=== PATIENT | female | born 1985 | race Caucasian/White ===

== ENCOUNTER 2017-07-14 12:19 | Emergency (ER) | payer OTHER ==
[2017-07-14 12:29] VITALS: BMI 35.3
[2017-07-14] MEDS ORDERED: ONDANSETRON 4 MG/2 ML VIAL IVPB ONE (14:16)
[2017-07-14] MEDS ORDERED: SODIUM CHLORIDE 1,000 ML IV STA (14:16)
--- NOTE | 2017-07-14 14:21 | PDOC ---
History of Present Illness - General Chief Complaint: Pain, Acute Stated Complaint: ABD CRAMPS (7 WKS ) Time Seen by Provider: 07/14/17 13:46 - History of Present Illness Initial Comments: 07/14/17 14:11 31 yo who presents at [address] [facility] [place] complaint of left lower abdominal pain. Non bloody, biliary emesis x 6 yesterday and x 3 today. Crampy, stable, unremitting predominant LLQ abdominal pain slightly improved with left lateral decubitus position beginning this AM. Denies OTC treatment. Denies vaginal bleeding, or pelvic pain. Endorses decreased appetite and mild intermittent headache since course of . No postprandial pain. Denies fevers/chills, constipation, diarrhea, chest pain, SOB, lightheadedness, vision changes, LOC, dysuria, urinary complaints, hematuria. Currently sexually active with one sexual partner. Denies h/o STI. Denies tobacoo, alcohol intake. LMP . C section x 2, 1 vaginal . No PCP. OBGYN Dr. Vale Thursday Past History - Past Medical History Allergies/Adverse Reactions: Allergies Allergy/AdvReac Type Severity Reaction Status Date / Time No Known Allergies Allergy Verified 07/14/17 12:24 Home Medications: Ambulatory Orders Vits #93/Iron Fum/FA [ Formula Tablet] 1 each PO DAILY Asthma: No Cancer: No Cardiac Disorders: No COPD: No Diabetes: No HTN: No Seizures: No Thyroid Disease: No - Reproductive History (#): 3 Para: 2 - Suicide/Smoking/Psychosocial Hx Smoking Status: No Smoking History: Never smoked Have you smoked in the past 12 months: No Number of Cigarettes Smoked Daily: 0 Information on smoking cessation initiated: No Hx Alcohol Use: No Drug/Substance Use Hx: No Substance Use Type: None Hx Substance Use Treatment: No Review of Systems - Review of Systems Comments:: 07/14/17 14:21 GENERAL/CONSTITUTIONAL: No fever or chills. No weakness. HEAD, EYES, EARS, NOSE AND THROAT: No change in vision. No ear pain or discharge. No sore throat.- CARDIOVASCULAR: No chest pain or shortness of breath RESPIRATORY: No cough, wheezing, or hemoptysis. GASTROINTESTINAL: + Abdominal pain, nausea, vomiting. No diarrhea or constipation. GENITOURINARY: No dysuria, frequency, or change in urination. MUSCULOSKELETAL: No joint or muscle swelling or pain. No neck or back pain. SKIN: No rash NEUROLOGIC: No headache, vertigo, loss of consciousness, or change in strength/ sensation. ENDOCRINE: No increased thirst. No abnormal weight change HEMATOLOGIC/LYMPHATIC: No anemia, easy bleeding, or history of blood clots. ALLERGIC/IMMUNOLOGIC: No hives or skin allergy. *Physical Exam - Vital Signs Last Vital Signs Temp Pulse Resp BP Pulse Ox 99.1 F 96 H 18 125/69 100 07/14/17 12:25 07/14/17 12:25 07/14/17 12:25 07/14/17 12:25 07/14/17 12:25 - Physical Exam Comments: 07/14/17 14:22 GENERAL: Awake, alert, and fully oriented, in no acute distress HEAD: No signs of trauma, normocephalic, atraumatic EYES: PERRLA, EOMI, sclera anicteric, conjunctiva clear ENT: Hearing grossly normal, nares patent, oropharynx clear without exudates. Moist mucosa NECK: Normal ROM, no JVD, or masses LUNGS: No distress, speaks full sentences, clear to auscultation bilaterally HEART: Regular rate and LLQ ttp, normoactive bowel sounds. No guarding, no rigidity, no rebound. No masses. No CVA ttp. Neg Meza sign. Neg Mcburney point ttp. EXTREMITIES : Normal inspection, Normal range of motion, no edema. No clubbing or cyanosis. SKIN: Warm, Dry, normal turgor, no rashes or lesions noted. ED Treatment Course - LABORATORY CBC & Chemistry Diagram: 07/14/17 14:23 07/14/17 14:23 Medical Decision Making - Medical Decision Making 07/14/17 14:23 31 yo who presents at [address] [facility] with complaint of crampy LLQ abdominal pain asx with non bloody, biliary emesis x 6 yesterday and x 3 today. Pain slightly improved with left lateral decubitus position beginning this AM. Denies vaginal bleeding, pelvic pain, fevers/chills, constipation, diarrhea, dysuria, urinary complaints, hematuria. Currently sexually active with one sexual partner. Denies h/o STI. Denies tobacoo, alcohol intake. LMP . C section x 2, 1 vaginal . No PCP. OBGYN Dr. Vale Thursday. Physical exam reveals LLQ ttp. Patient hemodynamically stable. Will obtain transvaginal u /s to r/o ectopic ectopic . Patient denies vaginal bleeding, low supsicion of first trimester . Low suspicion of ovarian torsion. Also will consider cystitis., gastritis, or hyperemesis gravidarum. ED Course: CBC, CMP, Lipase, UA, EKG NS, Zofran Transvaginal U/S 07/14/17 15:00 WBC: 11.4 07/14/17 15:01 UA: Neg 07/14/17 15:56 HCG [id number] 07/14/17 15:56 CMP: Unremarkable 07/14/17 16:03 Transvaginal U/S:single live intrauterine gestational at 7w1d. No ovarian pathology noted. heart activity documented. Patient is stable and ready for discharge with strict return precautions. Advised to f/u with OBGYN this week. *DC/Admit/Observation/Transfer Diagnosis at time of Disposition: Abdominal pain affecting - Discharge Dispostion Disposition: HOME Condition at time of disposition: Stable Admit: No - Referrals - Patient Instructions Printed Discharge Instructions: DI for Abdominal Pain -- Early Additional Instructions: Please return to the emergency department with any new or worsening symptoms or concerns. Please follow up with your BUSINESS INTELLIGENCE MANAGER physician within 1 week. - Post Discharge Activity - Attestations Physician Attestion: 07/14/17 16:02 I attest to the information provided in this note.
[2017-07-14 14:44] LABS: BASOPHIL 0.4 % (0-2.0); EOSINOPHIL 0.4 % (0-4.5); MCH 28.5 pg (25.7-33.7); MEAN CELL VOLUME 86.4 fl (80-96); MEAN PLT VOLUME 7.5 fl (7.5-11.1); NEUTROPHILS 76.8 % (42.8-82.8); PLATELET COUNT 257 K/MM3 (134-434); RDW 14.7 % (11.6-15.6); WHITE BLOOD COUNT 11.4 K/mm3 (4.0-10.0)
[2017-07-14 14:45] LABS: PH,URINE 6.5 (5.0-8.0); URINE APPEARANCE CLEAR; URINE BILIRUBIN NEGATIVE (NEGATIVE); URINE BLOOD NEGATIVE (NEGATIVE); URINE COLOR LT. YELLOW; URINE GLUCOSE (UA) NEGATIVE (NEGATIVE); URINE KETONE NEGATIVE (NEGATIVE); URINE NITRITE NEGATIVE (NEGATIVE); URINE PROTEIN NEGATIVE (NEGATIVE); URINE UROBILINOGEN 0.2 mg/dL (0.2-1.0)
[2017-07-14 15:09] LABS: ALBUMIN 3.8 g/dl (3.4-5.0); ANION GAP 7 (8-16); CALCIUM 9.1 mg/dL (8.5-10.1); CO2 26 mmol/L (21-32); CREATININE 0.7 mg/dL (0.55-1.02); GLUCOSE,RANDOM 75 mg/dL (74-106); SGOT/AST 12 U/L (15-37); SGPT/ALT 22 U/L (12-78)
[2017-07-14 15:11] LABS: ALK PHOS 83 U/L (45-117); BILIRUBIN,TOTAL 0.3 mg/dL (0.2-1.0)
--- NOTE | 2017-07-14 16:16 | PDOC ---
Attending Attestation - Resident Resident Name: Johnny Lombardo - ED Attending Attestation I have performed the following: I have examined & evaluated the patient, The case was reviewed & discussed with the resident, I agree w/resident's findings & plan, Exceptions are as noted - HPI HPI: 07/14/17 16:11 31-year-old female LMP about 7 weeks' presents with mild and intermittent left lateral abdominal cramping since this morning, gassy type pain in the setting of several days of constipation. No urinary complaints, no vaginal bleeding or pelvic cramping. Scheduled to see Dr. Whittaker on 07/30. - Physicial Exam PE: 07/14/17 16:12 afebrile, vss abd soft/nt/nd bs nl. no cvat. no guarding/rebound - Medical Decision Making 07/14/17 16:14 Patient seen and evaluated with the resident. I agree with the overall evaluation, assessment, and management with the following summary of visit: Healthy 31-year-old female first trimester with nonspecific gas E left lateral abdominal discomfort without associated REHAB OFFICE COORDINATOR or complaints, only in the setting of constipation. Abdomen is benign, no other red flags on history or physical exam. Labs are within normal limits Urinalysis is clear Ultrasound shows normal IUP, ovarian flow not evaluated but patient's pain is much lateral to the ovary/pelvic region and presentation is not consistent with torsion. Can proceed with f/u with Dr. Whittaker on 07/30 as scheduled. understands return criteria.
[2017-07-14 16:18] VITALS: BP 100/64; PULSE 78; TEMP 98.6
[2017-07-14 20:03] LABS: URINE LEUK ESTERASE Negative (NEGATIVE)
== END 2017-07-14 16:18 | disposition home or self-care (01) ==
LOC: JER 12:19
PROC: 3E033GC Introduction of Other Therapeutic Substance into Peripheral Vein, Percutaneous Approach (ICD-10-PCS; principal; 2017-07-14)
DX: O26.891 Other specified pregnancy related conditions, first trimester (principal); R10.30 Lower abdominal pain, unspecified; Z3A.01 Less than 8 weeks gestation of pregnancy
CPT/HCPCS: 36415; 76817-TC; 80053; 81003; 83690; 84702; 85025; 86850; 86900; 86901; 96374; 99284-25

== ENCOUNTER 2017-08-03 14:25 | Emergency (ER) | payer OTHER ==
[2017-08-03 14:29] VITALS: BP 132/83; PULSE 105; TEMP 98.3; BMI 36.3
[2017-08-03] MEDS ORDERED: ONDANSETRON 4 MG/2 ML VIAL IVPB ONE (14:31)
[2017-08-03] MEDS ORDERED: SODIUM CHLORIDE 0.9% 1000 ML INFUS.BAG IV ONE (14:32)
--- NOTE | 2017-08-03 14:34 | PDOC ---
Rapid Medical Evaluation Time Seen by Provider: 08/03/17 14:26 Medical Evaluation: Allergies Allergy/AdvReac Type Severity Reaction Status Date / Time No Known Allergies Allergy Verified 07/14/17 12:24 08/03/17 14:27 I have performed a brief in-person evaluation of this patient. This patient presents with a chief complaint of: vomiting since yesterday. Patient 10 weeks ,GP Denies vaginal bleeding and crampin Pertinenet physical exam findings: NAD lungs clear bilaterally abdomen soft non tender +bowel sounds Gu: no cva tenderness I have ordered the following: iv access, ivf and antiemetic This patient will proceed to the ED for further evaluation Discharge Disposition - Referrals Referrals: Gilberto Whittaker MD [Primary Care Provider] - - Patient Instructions - Post Discharge Activity
[2017-08-03] MEDS ORDERED: ONDANSETRON 4 MG/2 ML VIAL ONE (16:15)
[2017-08-03] MEDS ORDERED: ACETAMINOPHEN 325 MG TABLET (FP) PO ONE (16:39)
[2017-08-03] MEDS ORDERED: ACETAMINOPHEN 325 MG TABLET (FP) ONE (17:15)
--- NOTE | 2017-08-03 17:26 | PDOC ---
History of Present Illness - General Chief Complaint: Nausea/Vomiting Stated Complaint: NAUSEA/VOMITING 10 WKS PREG Time Seen by Provider: 08/03/17 14:26 Past History - Past Medical History Allergies/Adverse Reactions: Allergies Allergy/AdvReac Type Severity Reaction Status Date / Time No Known Allergies Allergy Verified 08/03/17 14:29 Home Medications: Ambulatory Orders Vits #93/Iron Fum/FA [ Formula Tablet] 1 each PO DAILY Asthma: No Cancer: No Cardiac Disorders: No COPD: No Diabetes: No HTN: No Seizures: No Thyroid Disease: No Other medical history: denies - Reproductive History (#): 3 Para: 2 - Suicide/Smoking/Psychosocial Hx Smoking Status: No Smoking History: Never smoked Have you smoked in the past 12 months: No Number of Cigarettes Smoked Daily: 0 Information on smoking cessation initiated: No Hx Alcohol Use: No Drug/Substance Use Hx: No Substance Use Type: None Hx Substance Use Treatment: No *Physical Exam - Vital Signs Last Vital Signs Temp Pulse Resp BP Pulse Ox 98.3 F 105 H 18 132/83 100 08/03/17 14:27 08/03/17 14:27 08/03/17 14:27 08/03/17 14:27 08/03/17 14:27 ED Treatment Course - Medications Given in the ED: ED Medications Discontinued Medications Generic Name Dose Route Start Last Admin Trade Name Nick PRN Reason Stop Dose Admin Acetaminophen 650 mg 08/03/17 16:39 08/03/17 17:17 Tylenol - PO 08/03/17 16:40 650 mg ONCE ONE Administration Ondansetron HCl 4 mg 08/03/17 14:31 08/03/17 16:20 Zofran Injection IVPB 08/03/17 14:32 4 mg ONCE ONE Administration Sodium Chloride 1,000 ml 08/03/17 14:32 08/03/17 16:20 Normal Saline - IV 08/03/17 14:33 1,000 ml ONCE ONE Administration *DC/Admit/Observation/Transfer - Referrals Referrals: Gilberto Whittaker MD [Primary Care Provider] - - Patient Instructions - Post Discharge Activity
--- NOTE | 2017-08-03 17:29 | PDOC ---
Attending Attestation - Resident Resident Name: AlfonzocynthiaArtem - ED Attending Attestation I have performed the following: I have examined & evaluated the patient, The case was reviewed & discussed with the resident, I agree w/resident's findings & plan, Exceptions are as noted - HPI HPI: 08/03/17 17:27 31 yo female who is approximately 10 weeks p/w persistent vomiting - Physicial Exam PE: 08/03/17 17:29 wnwnd 31 yo female . this is her 4th . children 11,7,4 at home head ncat neck supple lungs cta b/l cvs [id number] abd nontender,no rebound ext no e/c/c neuro no focall neuro deficits - Medical Decision Making 08/03/17 21:06 pt had no pelvic cramping or bleeding/feels much better [id number] IVF pllan d/c, obg/fence erector supervisor follow up, RX zofran
--- NOTE | 2017-08-03 18:19 | PDOC ---
History of Present Illness - General Chief Complaint: Nausea/Vomiting Stated Complaint: NAUSEA/VOMITING 10 WKS PREG Time Seen by Provider: 08/03/17 14:26 History Source: Patient Exam Limitations: No Limitations - History of Present Illness Initial Comments: 08/03/17 18:12 Pt is a 31 y/o F 10 weeks w/ PMH hyperemesis gravidarum during her first who presents to ED with nausea and nonbloddy nonbilious vomiting for 1 day. Pt is afebrile, in NAD, and hemodynamically stable. Pt denies fever, chills, recent travel, abd pain, diarrhea. Pt has been taking Zofran daily since June. Past History - Past Medical History Allergies/Adverse Reactions: Allergies Allergy/AdvReac Type Severity Reaction Status Date / Time No Known Allergies Allergy Verified 08/03/17 14:29 Home Medications: Ambulatory Orders Vits #93/Iron Fum/FA [ Formula Tablet] 1 each PO DAILY Ondansetron HCl [Zofran] 8 mg PO BID PRN #20 tablet 08/03/17 Asthma: No Cancer: No Cardiac Disorders: No COPD: No Diabetes: No HTN: No Seizures: No Thyroid Disease: No Other medical history: denies - Reproductive History (#): 3 Para: 2 - Suicide/Smoking/Psychosocial Hx Smoking Status: No Smoking History: Never smoked Have you smoked in the past 12 months: No Number of Cigarettes Smoked Daily: 0 Information on smoking cessation initiated: No Hx Alcohol Use: No Drug/Substance Use Hx: No Substance Use Type: None Hx Substance Use Treatment: No Review of Systems - Review of Systems Able to Perform ROS?: Yes Is the patient limited [place]ian proficient: No Constitutional: Yes: Symptoms Reported, See HPI, Loss of Appetite. No: Chills, Diaphoresis, Fever, Malaise, Weakness HEENTM: Yes: Symptoms Reported, See HPI. No: Recent change in vision Respiratory: Yes: Symptoms reported, See HPI. No: Cough, Shortness of Breath Cardiac (ROS): Yes: Symptoms Reported, See HPI. No: Chest Pain, Lightheadedness , Palpitations, Syncope ABD/GI: Yes: Symptoms Reported, See HPI, Nausea, Vomiting. No: Abdominal Distended, Abd. Pain w/ defecation, Constipated, Diarrhea : Yes: Symptoms Reported, See HPI. No: Burning, Dysuria, Discharge, Frequency Musculoskeletal: Yes: Symptoms Reported, See HPI. No: Back Pain *Physical Exam - Vital Signs Last Vital Signs Temp Pulse Resp BP Pulse Ox 98.3 F 105 H 18 132/83 100 08/03/17 14:27 08/03/17 14:27 08/03/17 14:27 08/03/17 14:27 08/03/17 14:27 ED Treatment Course - LABORATORY CBC & Chemistry Diagram: 08/03/17 19:22 - Medications Given in the ED: ED Medications Discontinued Medications Generic Name Dose Route Start Last Admin Trade Name Freq PRN Reason Stop Dose Admin Acetaminophen 650 mg 08/03/17 16:39 08/03/17 17:17 Tylenol - PO 08/03/17 16:40 650 mg ONCE ONE Administration Ondansetron HCl 4 mg 08/03/17 14:31 08/03/17 16:20 Zofran Injection IVPB 08/03/17 14:32 4 mg ONCE ONE Administration Sodium Chloride 1,000 ml 08/03/17 14:32 08/03/17 16:20 Normal Saline - IV 08/03/17 14:33 1,000 ml ONCE ONE Administration Medical Decision Making - Medical Decision Making 08/03/17 18:20 Pt is a 31F 10th week of s/p C/S x 2 w/ PMH hyperemesis gravidarum who presented to ED with nausea and nonbloody vomiting (10 episodes) for 1 d. She has been taking Zofran daily since Jun for similar complaint. Pt is afebrile, hemodynamically stable, in NAD. Denies recent travel, sick contacts. -Tylenol -Zofran -NS *DC/Admit/Observation/Transfer Diagnosis at time of Disposition: Hyperemesis gravidarum - Discharge Dispostion Disposition: HOME Condition at time of disposition: Good Admit: No - Prescriptions Prescriptions: Ondansetron HCl [Zofran] 8 mg PO BID PRN #20 tablet PRN Reason: Nausea - Referrals Referrals: Gilberto Whittaker MD [Primary Care Provider] - - Patient Instructions Additional Instructions: Please follow up with your CONCESSION MANAGER within 3 days. Please take all of your prescription medications as directed. If your symptoms get worse or if you develop new symptoms, please return to the emergency department. Try to stay hydrated with small amounts of fluid frequently. - Post Discharge Activity
[2017-08-03] MEDS ORDERED: SODIUM CHLORIDE 1,000 ML IV STA (18:41)
[2017-08-03] MEDS ORDERED: METOCLOPRAMIDE HCL INJECTION 10 MG/2 ML VIAL IVPB STA (18:41)
[2017-08-03] MEDS ORDERED: METOCLOPRAMIDE HCL INJECTION 10 MG/2 ML VIAL ONE (19:07)
[2017-08-03 19:59] LABS: ANION GAP 6 (8-16); CO2 25 mmol/L (21-32); CREATININE 0.5 mg/dL (0.55-1.02); GLUCOSE,RANDOM 76 mg/dL (74-106); SGOT/AST 13 U/L (15-37); SGPT/ALT 18 U/L (12-78)
[2017-08-03 20:01] LABS: ALK PHOS 59 U/L (45-117); BILIRUBIN,TOTAL 0.6 mg/dL (0.2-1.0); TOT PROT 6.6 g/dl (6.4-8.2)
== END 2017-08-03 21:33 | disposition home or self-care (01) ==
LOC: JER 14:25
DX: O26.891 Other specified pregnancy related conditions, first trimester (principal); O21.0 Mild hyperemesis gravidarum; Z3A.10 10 weeks gestation of pregnancy
CPT/HCPCS: 36415; 80053; 99284-25

== ENCOUNTER 2017-09-07 12:27 | Emergency (ER) | payer OTHER ==
[2017-09-07 12:37] VITALS: BP 119/64; TEMP 99.2; BMI 36.3
--- NOTE | 2017-09-07 15:07 | PDOC ---
History of Present Illness - General Chief Complaint: Cold Symptoms Stated Complaint: CHEST PAIN, COUGH (15 WKS ) Time Seen by Provider: 09/07/17 15:04 History Source: Patient Exam Limitations: No Limitations - History of Present Illness Initial Comments: CHIEF COMPLAINT: 31 y/o 15 week female c/o worsening dry cough x 1 week. HISTORY OF PRESENT ILLNESS: The patient states the front of her chest is now sore to touch because of all of the coughing. She denies fever. She denies NAIDU , SOB, runny nose, nasal congestion, n/v/d, abnormal vaginal discharge, leg or calf pain/redness. Vital signs on arrival are notable for pulse of 110 secondary to temp of 99.2. REVIEW OF SYSTEMS: GENERAL/CONSTITUTIONAL: No fever/chills. No weakness. No weight change. HEAD, EYES, EARS, NOSE AND THROAT: No change in vision. No ear pain or discharge. No sore throat. CARDIOVASCULAR: +chest pain. No shortness of breath. RESPIRATORY: +dry cough. No wheezing or hemoptysis. GASTROINTESTINAL: No abd pain, nausea, vomiting, diarrhea. GENITOURINARY: No dysuria, frequency, or change in urination. MUSCULOSKELETAL: No joint or muscle swelling or pain. No neck or back pain. No redness or swelling to legs. SKIN: No rash or easy bruising. NEUROLOGIC: No headache, vertigo, loss of consciousness, or loss of sensation. PHYSICAL EXAM: GENERAL: The patient is awake, alert, and fully oriented, in no acute distress. She is well appearing and ambulatory. Very sporadic dry cough. HEAD: Normal with no signs of trauma. ENT: Pupils equal, round and reactive to light, extraocular movements intact, sclera anicteric, conjunctiva clear. Neck supple. LUNGS: Clear to auscultation bilaterally. Normal excursion. No respiratory distress or use of accessory muscles. CV: RRR, S1/S2, no MRG. Cap refill < 2 sec. CHEST WALL: Reproducible pain with palpation of anterior chest wall along b/l sternal borders. ABDOMEN: Soft, non-distended, non-tender even to deep palpation, no hepatomegaly or splenomegaly, no masses. EXTREMITIES: Normal range of motion, no edema. No erythema or tenderness to calves b/l. NEUROLOGICAL: Normal speech, normal gait. CN II-XII grossly intact. PSYCH: Normal mood, normal affect. SKIN: Warm, dry, normal turgor, no rashes or lesions noted. Past History - Past Medical History Allergies/Adverse Reactions: Allergies Allergy/AdvReac Type Severity Reaction Status Date / Time No Known Allergies Allergy Verified 09/07/17 12:33 Home Medications: Ambulatory Orders Nebulizer [Aeroeclipse II] 1 each MC PRN #1 each 09/07/17 Oseltamivir Phosphate [Tamiflu -] 75 mg PO BID #10 capsule 09/07/17 Sodium Chloride Inhalation [Normal Saline *For Inhalation*] 3 ml IH PRN #25 vial.neb 09/07/17 Asthma: No Cancer: No Cardiac Disorders: No COPD: No Diabetes: No HTN: No Seizures: No Thyroid Disease: No - Reproductive History (#): 3 Para: 2 - Suicide/Smoking/Psychosocial Hx Smoking Status: No Smoking History: Never smoked Have you smoked in the past 12 months: No Number of Cigarettes Smoked Daily: 0 Information on smoking cessation initiated: No Hx Alcohol Use: No Drug/Substance Use Hx: No Substance Use Type: None Hx Substance Use Treatment: No *Physical Exam - Vital Signs Last Vital Signs Temp Pulse Resp BP Pulse Ox 99.2 F 110 H 18 119/64 100 09/07/17 12:34 09/07/17 12:34 09/07/17 12:34 09/07/17 12:34 09/07/17 12:34 Medical Decision Making - Medical Decision Making A/P: 31 y/o female with cough x 1 week with daughter who has fever and flu symptoms. Her HR has come down. Will discharge to home with tamiflu and nebulizer with normal saline to help with cough. Suggested she take tylenol if needed for pain. Instructed her to return to the ER with any worsening or concerning symptoms. The patient verbalizes understanding of all instructions, has no further questions and is awaiting discharge. *DC/Admit/Observation/Transfer Diagnosis at time of Disposition: Influenza, Cough - Discharge Dispostion Disposition: HOME Condition at time of disposition: Good - Prescriptions Prescriptions: Nebulizer [Aeroeclipse II] 1 each MC PRN #1 each Oseltamivir Phosphate [Tamiflu -] 75 mg PO BID #10 capsule Sodium Chloride Inhalation [Normal Saline *For Inhalation*] 3 ml IH PRN #25 vial.neb - Referrals - Patient Instructions Printed Discharge Instructions: DI for Influenza -- Adult, DI for Cough -- Adult Additional Instructions: Discharge Instructions: -A prescription for tamiflu has been sent to your pharmacy; please take all 5 days -A nebulizer and normal saline is also at your pharmacy; please take as needed for cough -Return to the ER immediately with any worsening or concerning symptoms - Post Discharge Activity
[2017-09-07] MEDS ORDERED: ACETAMINOPHEN 325 MG TABLET (FP) PO ONE (15:22)
[2017-09-07] MEDS ORDERED: ACETAMINOPHEN 325 MG TABLET (FP) ONE (15:24)
[2017-09-07 16:29] VITALS: PULSE 102
== END 2017-09-07 16:59 | disposition home or self-care (01) ==
LOC: JERFT 12:27
DX: O26.892 Other specified pregnancy related conditions, second trimester (principal); O98.512 Other viral diseases complicating pregnancy, second trimester; J11.1 Influenza due to unidentified influenza virus with other respiratory manifestations; Z3A.15 15 weeks gestation of pregnancy
CPT/HCPCS: 99281-25

== ENCOUNTER 2018-02-23 06:16 | Inpatient (IN) | payer OTHER ==
[2018-02-23] MEDS ORDERED: CITRIC ACID/SODIUM CITRATE 30 ML UNIT-DOSE CUP PO ONE (06:58)
[2018-02-23] MEDS ORDERED: ELECTROLYTE-148 SOLN 1,000 ML IV SCH (07:00)
[2018-02-23] MEDS ORDERED: BUPIVACAINE 0.75% IN DEXTROSE/PF 2ML AMPULE NR ONE (07:18)
[2018-02-23] MEDS ORDERED: morphine SULFATE/Preservative Free 0.5 MG/ML (1cc Syringe) ONE (07:18)
[2018-02-23] MEDS ORDERED: PHENYLEPHRINE HCL 10 MG/1 ML SINGLE DOSE VIAL ONE (07:18)
[2018-02-23] MEDS ORDERED: ePHEDrine SULFATE 50 MG/1 ML AMPULE ONE (07:18)
[2018-02-23] MEDS ORDERED: ceFAZolin SODIUM 1 GM VIAL ONE ×2 (07:18→07:54)
[2018-02-23 07:34] VITALS: BMI 38.0
[2018-02-23] MEDS ORDERED: OXYTOCIN 20 UNITS in 0.9% NS 20 UNIT/1,000 ML INFUS.BAG IV ONE (07:35)
[2018-02-23] MEDS ORDERED: IBUPROFEN 600 MG TABLET (FP) PO PRN (08:01)
[2018-02-23] MEDS ORDERED: ONDANSETRON 4 MG/2 ML VIAL IVPUSH PRN (08:01)
[2018-02-23] MEDS ORDERED: morphine SULFATE/Preservative Free 0.5 MG/ML (1cc Syringe) SPIN ONE (08:01)
--- NOTE | 2018-02-23 08:02 | HP ---
Past Medical History - Primary Care Physician PCP:: Gilberto Whittaker - Admission Chief Complaint: 39 weeks, previous c/s. sterlization request History of Present Illness: 32 yo f g 4 [id number] edc by sono03/01/18 39.4 weeks,with 2 previous c/s , request of repeat c/s and BTL, aware risks of repeat c/s and BTL , aware btl is permenant and has small failure risks and risks of ectopic. History Source: Patient Limitations to Obtaining History: No Limitations - Past Medical History ...: 4 ...Para: 3 ...Term: 3 ...: 0 ...Spon : 0 ...Induced : 0 ...Multiple Gestation: 0 ...LMP: 05/15/17 ... Weeks Gestation by Dates: 40.4 ...EDC by Dates: 02/19/18 ...EDC by Sono: 03/01/18 - Past Surgical History Past Surgical History: Yes: Hx Myomectomy: No Hx Transabdominal Cerclage: No - Smoking History Smoking history: Never smoked Have you smoked in the past 12 months: No Aproximately how many cigarettes per day: 0 - Alcohol/Substance Use Hx Alcohol Use: No - Social History History of Recent Travel: No Home Medications - Allergies Allergies/Adverse Reactions: Allergies Allergy/AdvReac Type Severity Reaction Status Date / Time No Known Allergies Allergy Verified 02/23/18 07:12 - Home Medications Home Medications: Ambulatory Orders Ferrous Sulfate [Feosol] 325 mg PO DAILY 02/23/18 Vit/Iron Fum/Folic AC [ Tablet] 1 each PO DAILY 02/23/18 Review of Systems - Review of Systems Constitutional: reports: No Symptoms Eyes: reports: No Symptoms HENT: reports: No Symptoms Neck: reports: No Symptoms Cardiovascular: reports: No Symptoms Respiratory: reports: No Symptoms Gastrointestinal: reports: No Symptoms Genitourinary: reports: No Symptoms Breasts: reports: No Symptoms Reported Musculoskeletal: reports: No Symptoms Integumentary: reports: No Symptoms Neurological: reports: No Symptoms Endocrine: reports: No Symptoms Hematology/Lymphatic: reports: No Symptoms Psychiatric: reports: No Symptoms Physical Exam - Maternity Vital Signs: Vital Signs Temperature 98.6 F 02/23/18 07:00 Pulse Rate 88 02/23/18 07:00 Respiratory Rate 18 02/23/18 07:00 Blood Pressure 121/60 02/23/18 07:00 O2 Sat by Pulse Oximetry (%) Constitutional: Yes: Well Nourished, No Distress, Calm Eyes: Yes: WNL, Conjunctiva Clear, EOM Intact HENT: Yes: WNL, Atraumatic, Normocephalic Neck: Yes: WNL, Supple, Trachea Midline Cardiovascular: Yes: WNL, Regular Rate and Rhythm Breast(s): Yes: WNL - Abdominal Exam/OB Fundal Height: 38 Number of Fetuses: Single Presentation: Vertex Contractions: No Intensity: Unaware Monitor Mode: External Heart Rate Location: [facility] Category: I Accelerations: Uniform Decelerations: None - Vaginal Exam/OB Vaginal Bleediing: No Speculum Exam: No Dilatation (cm): closed Effacement (%): 0 Amniotic Membrane Status: Intact Presentation: Vertex/Position Station: -3 - Physical Exam Musculoskeletal: Yes: WNL Extremities: Yes: WNL Edema: Yes Edema: LLE: Trace, RLE: Trace Deep Tendon Reflex Grade: Normal +2 Hemorrhage Risk Assessment - Risk Factors Medium Risk Factors: Yes: Prior , uterine surgery,or multiple laparotomies Risk Score: 2 Risk Level: High Risk Problem List - Problems (1) with 39 completed weeks gestation Code(s): Z3A.39 - 39 WEEKS GESTATION OF (2) Previous section complicating Code(s): O34.219 - MATERNAL CARE FOR UNSP TYPE SCAR FROM PREVIOUS DEL (3) Admission for sterilization Code(s): Z30.2 - ENCOUNTER FOR STERILIZATION Assessment/Plan repeat c/s, and BTL , risks of c/s discussed with patient aware risks of infection, bleeding , injury to surrounding tissue ETC discussed
[2018-02-23] MEDS ORDERED: diphenhydrAMINE HCL 25 MG CAPSULE (FP) PO PRN (09:05)
[2018-02-23] MEDS ORDERED: BENZOCAINE 28 GM HEMORRHOIDAL OINTMENT PR PRN (09:05)
[2018-02-23] MEDS ORDERED: BENZOCAINE 20% 57 GM BOTTLE TP PRN (09:05)
[2018-02-23] MEDS ORDERED: METHYLERGONOVINE MALEATE 0.2 MG/1 ML AMP IM PRN (09:05)
[2018-02-23] MEDS ORDERED: WITCH HAZEL 50% (TUCKS) 40 PAD/JAR PAD TP PRN (09:05)
[2018-02-23 11:19] LABS: ANION GAP 7 (8-16); BLOOD UREA NITROGEN 3 mg/dL (7-18); CALCIUM 7.5 mg/dL (8.5-10.1); CHLORIDE 108 mmol/L (98-107); CO2 31 mmol/L (21-32); CREATININE 0.4 mg/dL (0.55-1.02); GLUCOSE,RANDOM 70 mg/dL (74-106); SODIUM 146 mmol/L (136-145)
[2018-02-23] MEDS ORDERED: OXYTOCIN 20 UNITS in 0.9% NS 20 UNIT/1,000 ML INFUS.BAG IV SCH (11:30)
[2018-02-23 11:32] LABS: POTASSIUM 2.9 mmol/L (3.5-5.1)
--- NOTE | 2018-02-23 11:49 | SURG ---
Surgery Mold Maker Apprentice Note Mold Maker Apprentice: Velasquez Renteria PA-C Date of Service: 02/23/18 Diagnosis: Repeat Procedure: Repeat Cesarian section and tubal ligation I was present for the entirety of the operative procedure. For further detail, please refer to operative report.
[2018-02-23] MEDS ORDERED: POTASSIUM CHLORIDE TABS 20 MEQ TABLET.ER (FP) PO ONE ×2 (12:30→20:00)
--- NOTE | 2018-02-23 13:39 | OP ---
DATE OF OPERATION: 02/23/2018 PREOPERATIVE DIAGNOSIS: , 39 weeks, 2 previous sections, request for repeat section and tubal ligation. POSTOPERATIVE DIAGNOSIS: , 39 weeks, 2 previous sections, request for repeat section and tubal ligation. PROCEDURE: Repeat low segment transverse section and bilateral tubal ligation. SURGEON: Gilberto Whittaker M.D. EXPLOSIVE OPERATOR: , PA ANESTHESIA: Spinal. ANESTHESIOLOGIST: Quintin Brannon MD ESTIMATED BLOOD LOSS: 500 mL FINDINGS: A live baby boy, Apgars 9 and 9, ROT position. Cord around the neck x1. OPERATIVE PROCEDURE: Patient was taken to the operating room and under adequate spinal anesthesia, the abdomen and perineum were prepped and draped. A Pfannenstiel abdominal skin incision was made over the previous incision. The abdominal wall was cut layer by layer. The anterior peritoneum was exposed and incised. Upon entry into the abdominal cavity, the lower uterine segment was identified. There were some adhesions of the omentum to the lower uterine segment and to the peritoneum which were lysed and then the lower uterine segment was identified. Bladder flap was developed and the bladder was pushed down. A low transverse uterine incision was made. Incision extended laterally. Amniotic sac was entered, clear fluid. Head delivered. Nasopharynx was suctioned. A live baby was delivered without any difficulty. There was the cord around the neck which was reduced prior to delivery of the shoulders. Placenta was delivered manually. Uterine cavity was cleared of all remaining tissue. Uterine incision was closed in two layers, the first layer with 0 Biosyn continuous suture. The second layer was closed with 0 Biosyn, imbricating the first layer. Bladder flap was closed with 0 Biosyn continuous suture. Both tubes and ovaries were checked and were normal. Then, the right tube was grasped with [place] clamp. The right tube was doubly tied with 2-0 plain. A portion of the tube was removed and the mesosalpinx and endosalpinx were cauterized. The same procedure was repeated for the opposite tube. No active bleeding was seen. Both ovaries were normal. The pelvic cavity was irrigated several times. Then all the lap, sponge and instrument counts were correct. Peritoneum was closed with 0 Biosyn continuous suture. Muscles were brought together with interrupted suture of 0 Biosyn and then the fascia was closed with 0 Vicryl continuous suture. Subcutaneous tissue was closed with interrupted suture of 0 Biosyn and the skin was closed with 3-0 Vicryl subcuticular continuous suture. The patient tolerated the procedure well and left the OR in good condition. GILBERTO WHITTAKER M.D. [id number]
[2018-02-23] MEDS: IBUPROFEN 800 MG/8 ML IJ IVPB PRN (16:52)
[2018-02-23] MEDS ORDERED: CEFAZOLIN 1 GM/D5W 1 GM/50 ML BAG IVPB SCH (18:00)
[2018-02-23] MEDS: CEFAZOLIN 1 GM in DEXTROSE 5%-WATER - 50 ML IVPB SCH (18:00)
[2018-02-23] MEDS ORDERED: DEXTROSE 5%-LACTATED RINGERS 1,000 ML IV SCH (19:30)
[2018-02-24] MEDS: CEFAZOLIN 1 GM in DEXTROSE 5%-WATER - 50 ML IVPB SCH (01:47)
[2018-02-24] MEDS: IBUPROFEN 800 MG/8 ML IJ IVPB PRN (02:15)
[2018-02-24 08:22] LABS: BASO % 0.8 % (0-2.0); HEMOGLOBIN 10.8 GM/dL (10.7-15.3); LYMPH % 15.2 % (8-40); MCH 28.8 pg (25.7-33.7); MCHC 32.7 g/dl (32.0-36.0); MEAN PLT VOLUME 7.5 fl (7.5-11.1); MONO % 5.9 % (3.8-10.2); NEUT % 77.1 % (42.8-82.8); PLATELET COUNT 128 K/MM3 (134-434); RBC 3.75 M/mm3 (3.60-5.2); RDW 15.4 % (11.6-15.6); WHITE BLOOD COUNT 7.5 K/mm3 (4.0-10.0)
[2018-02-24 08:54] LABS: ANION GAP 8 (8-16); BLOOD UREA NITROGEN 4 mg/dL (7-18); CALCIUM 7.8 mg/dL (8.5-10.1); CHLORIDE 107 mmol/L (98-107); CO2 27 mmol/L (21-32); CREATININE 0.3 mg/dL (0.55-1.02); GLUCOSE,RANDOM 65 mg/dL (74-106); SODIUM 142 mmol/L (136-145)
[2018-02-24] MEDS ORDERED: BISACODYL 10 MG SUPP.RECT PR PRN (09:05)
--- NOTE | 2018-02-24 09:09 | PN ---
Progress Note (short form) - Note Progress Note: Post op day#1.S/P C section under spinal anesthesia with duramorph uneventful.Patient stable and has little pain for which she is on medication.No any anesthesia related problem.Patient Dc from the anesthesia care.
[2018-02-24] MEDS: ENOXAPARIN NA (PORCINE) 40 MG/0.4 ML DISP.SYRIN SQ SCH (09:34)
[2018-02-24] MEDS: SIMETHICONE 80 MG TAB.CHEW (FP) PO PRN ×4 (09:34→21:05)
[2018-02-24] MEDS: ACETAMINOPHEN 325 MG TABLET (FP) PO PRN ×4 (09:34→21:05)
[2018-02-24 09:35] LABS: POTASSIUM 2.9 mmol/L (3.5-5.1)
[2018-02-24] MEDS: oxyCODONE HCL 5 MG TABLET PO PRN ×4 (09:35→21:05)
[2018-02-24] MEDS ORDERED: DIPHTH,PERTUSS(ACELL),TET 0.5 ML DISP.SYRIN IM ONE (10:00)
[2018-02-24] MEDS ORDERED: POTASSIUM CHLORIDE TABS 20 MEQ TABLET.ER (FP) PO STA (11:44)
--- NOTE | 2018-02-24 13:23 | HP ---
CHIEF COMPLAINT: Low Potassium PCP: Pt. does not remember HISTORY OF PRESENT ILLNESS: Pt. does not recall ever having been told that her potassium was low. Pt. endorses vomiting 2-3 times per day for the last 6 months while on Ondansetron during the . Pt. says that prior to taking Ondansetron she was vomiting more frequently. Pt. also endorses decreased PO intake due to nausea and vomiting. Pt. has not vomited in 3-4 days. Pt. did not recall having low potassium with her previous pregnancies. Pt. endorses vomiting frequently during her previous pregnancies. Recent Travel: Did not ask PAST MEDICAL HISTORY: None PAST SURGICAL HISTORY: x 3 Social History: Smoking: No Alcohol: No Drugs: No Family History: Diabetes (Mom) Allergies: NKDA No Known Allergies Allergy (Verified 02/23/18 07:12) HOME MEDICATIONS: Home Medications Medication Instructions Recorded Ferrous Sulfate [Feosol] 325 mg PO DAILY 02/23/18 Vit/Iron Fum/Folic AC 1 each PO DAILY 02/23/18 [ Tablet] REVIEW OF SYSTEMS CONSTITUTIONAL: Absent: fever, chills, diaphoresis, generalized weakness, malaise, loss of appetite, weight change HEENT: Absent: rhinorrhea, nasal congestion, throat pain, throat swelling, difficulty swallowing, mouth swelling, ear pain, eye pain, visual changes CARDIOVASCULAR: Absent: chest pain, syncope, palpitations, irregular heart rate, lightheadedness , peripheral edema RESPIRATORY: Absent: cough, shortness of breath, dyspnea with exertion, orthopnea, wheezing, stridor, hemoptysis GASTROINTESTINAL: Absent: abdominal pain, abdominal distension, nausea, vomiting, diarrhea, constipation, melena, hematochezia GENITOURINARY: Absent: dysuria, frequency, urgency, hesitancy, hematuria, flank pain, genital pain MUSCULOSKELETAL: Absent: myalgia, arthralgia, joint swelling, back pain, neck pain SKIN: Absent: rash, itching, pallor HEMATOLOGIC/IMMUNOLOGIC: Absent: easy bleeding, easy bruising, lymphadenopathy, frequent infections ENDOCRINE: Absent: unexplained weight gain, unexplained weight loss, heat intolerance, cold intolerance NEUROLOGIC: Absent: headache, focal weakness or paresthesias, dizziness, unsteady gait, seizure, mental status changes, bladder or bowel incontinence PSYCHIATRIC: Absent: anxiety, depression, suicidal or homicidal ideation, hallucinations. PHYSICAL EXAMINATION Vital Signs - 24 hr 02/23/18 02/23/18 02/23/18 14:00 15:00 16:00 Temperature 98.2 F Pulse Rate 75 Respiratory 20 20 20 Rate Blood Pressure 118/68 02/23/18 02/23/18 02/23/18 17:00 18:00 19:00 Temperature 98.6 F Pulse Rate 72 Respiratory 20 20 18 Rate Blood Pressure 112/62 02/23/18 02/23/18 02/23/18 20:00 21:00 22:00 Temperature 98.2 F Pulse Rate 75 Respiratory 18 18 18 Rate Blood Pressure 117/73 02/23/18 02/24/18 02/24/18 23:00 00:00 01:00 Temperature Pulse Rate Respiratory 18 18 18 Rate Blood Pressure 02/24/18 02/24/18 02/24/18 02:00 03:00 04:00 Temperature 98.5 F Pulse Rate 70 Respiratory 18 18 18 Rate Blood Pressure 113/55 02/24/18 02/24/18 02/24/18 05:00 06:00 07:00 Temperature 98.5 F Pulse Rate 66 Respiratory 18 12 20 Rate Blood Pressure 112/62 02/24/18 02/24/18 02/24/18 08:00 09:00 10:00 Temperature 98.6 F Pulse Rate 63 Respiratory 20 20 20 Rate Blood Pressure 124/70 02/24/18 02/24/18 02/24/18 11:00 12:00 13:00 Temperature Pulse Rate Respiratory 20 20 20 Rate Blood Pressure GENERAL: Awake, alert, and fully oriented, in no acute distress. HEAD: Normal with no signs of trauma. EYES: Pupils equal, round and reactive to light, extraocular movements intact, sclera anicteric, conjunctiva clear LUNGS: Breath sounds equal, clear to auscultation bilaterally. No wheezes, and no crackles. No accessory muscle use. HEART: Regular rate and rhythm, normal S1 and S2 without murmur, rub or gallop.. MUSCULOSKELETAL: Normal range of motion at all joints UPPER EXTREMITIES: 5/5 strength, warm, well-perfused, No cyanosis. No clubbing. No peripheral edema. LOWER EXTREMITIES: 5/5 strength, warm, well-perfused, No peripheral edema. NEUROLOGICAL: Cranial nerves II-XII intact. Normal speech. PSYCHIATRIC: Cooperative. Good eye contact. Appropriate mood and affect. SKIN: Warm, dry, normal turgor Laboratory Results - last 24 hr 02/24/18 02/24/18 08:00 08:00 WBC 7.5 RBC 3.75 Hgb 10.8 Hct 33.0 MCV 88.0 MCH 28.8 MCHC 32.7 RDW 15.4 Plt Count 128 L D MPV 7.5 Absolute Neuts (auto) 5.8 Neutrophils % 77.1 Lymphocytes % 15.2 D Monocytes % 5.9 Eosinophils % 1.0 D Basophils % 0.8 D Nucleated RBC % 0 Sodium 142 Potassium 2.9 L* Chloride 107 Carbon Dioxide 27 Anion Gap 8 BUN 4 L Creatinine 0.3 L Creat Clearance w eGFR > 60 Random Glucose 65 L Calcium 7.8 L ASSESSMENT/PLAN: 32 y.o. F with no significant PMHx, presents with hypokalemia. Pt. is POD 1 from and BTL. Pt. has had two prior C-sections. #Hypokalemia 2/2 vomiting 2-3 times per day for 6 months w/ decreased PO intake -K+ was 2.9 on 02/23/18. -Pt. was given 80 meq of potassium on 02/23/18 evening and 40meq of potassium in morning of 02/24/18 -Repeat K+ on 02/24/18 showed K+ was still 2.9. -f/u on Magnesium level was 1.6, repleted with 800mg PO Mag Ox -f/u on K+ was 3.1, K Dur orders were placed (02/24/18) -f/u on ECG -if Mg is low, replete -if K+ is low, replete #Dispo -maternity dudley Visit type - Emergency Visit Emergency Visit: No - New Patient This patient is new to me today: Yes Date on this admission: 02/24/18 - Critical Care Critical Care patient: No Hospitalist Screening - Colonoscopy Questionnaire Colonoscopy Questionnaire: Colonoscopy Questionnaire - Patient: 50 - 75 years old and never had a screening colonoscopy: No History of colon or rectal polyps, or CA: No History of IBD, Crohn's disease or UC: No History of abdominal radiation therapy as a child: No - Relative: 1 with colon or rectal CA, or polyps at age 60 or younger: Unknown Colon or rectal CA diagnosed at age 45 or younger: Unknown Multiple relatives with colon or rectal CA: Unknown - Outcome: Screening Result: Negative Screen
--- NOTE | 2018-02-24 13:54 | PN ---
Teaching Attending Note Name of Resident: Marvel Winn ATTENDING PHYSICIAN STATEMENT I saw and evaluated the patient. I reviewed the resident's note and discussed the case with the resident. I agree with the resident's findings and plan as documented. SUBJECTIVE: This is a 32 year old woman with no significant history who is POD # 1 s/p and BTL. Medical consult is requested for hypokalemia. She has had hyperemesis for the last 6 months. She denies diarrhea, history of electrolyte abnormalities. Potassium was 2.9 and sodium was 146 yesterday and she was given KCl 40 meq PO x 2. Potassium was 2.9 again and sodium was 142 today. Her last potassium was 2.5 on 02/18/18. On 08/03/17 it was 3.7. OBJECTIVE: Vital Signs Period Temp Pulse Resp BP Sys/Tadeo Pulse Ox Last 24 Hr 98.2 F-98.6 F 63-75 12-20 112-124/55-73 HEART: S1S2, RRR LUNGS: Clear ABDOMEN: Soft, normal BS EXTREMITIES: No edema Laboratory Results - last 24 hr 02/24/18 02/24/18 08:00 08:00 WBC 7.5 RBC 3.75 Hgb 10.8 Hct 33.0 MCV 88.0 MCH 28.8 MCHC 32.7 RDW 15.4 Plt Count 128 L D MPV 7.5 Absolute Neuts (auto) 5.8 Neutrophils % 77.1 Lymphocytes % 15.2 D Monocytes % 5.9 Eosinophils % 1.0 D Basophils % 0.8 D Nucleated RBC % 0 Sodium 142 Potassium 2.9 L* Chloride 107 Carbon Dioxide 27 Anion Gap 8 BUN 4 L Creatinine 0.3 L Creat Clearance w eGFR > 60 Random Glucose 65 L Calcium 7.8 L ASSESSMENT AND PLAN: This is a 32 year old woman with no significant history, POD #1 s/p and BTL, with hyperemesis for the last 6 months, who has refractory hypokalemia. 1. Hypokalemia - Likely secondary to GI loss (vomiting) and poor oral intake - Clinically no evidence of hyperaldosteronism - Not taking any medications that would cause hypokalemia - Received KCl 40 meq PO x 2 yesterday and x 1 this morning - Check magnesium and replace if necessary - Continue to replete potassium as necessary
--- NOTE | 2018-02-24 14:19 | EKG ---
Test Reason : Blood Pressure : / mmHG Vent. Rate : 071 BPM Atrial Rate : 071 BPM P-R Int : 146 ms QRS Dur : 088 ms QT Int : 408 ms P-R-T Axes : 034 069 020 degrees QTc Int : 443 ms NORMAL SINUS RHYTHM T WAVE ABNORMALITY, CONSIDER ANTERIOR ISCHEMIA ABNORMAL ECG WHEN COMPARED WITH ECG OF 28-SEP-2012 14:38, NO SIGNIFICANT CHANGE WAS FOUND Confirmed by ELVIN ALONSO, MIKI ([id number]) on 02/24/2018 2:19:02 PM Referred By: Confirmed By:MIKI OCONNOR MD
[2018-02-24 15:07] LABS: ANION GAP 7 (8-16); BLOOD UREA NITROGEN 4 mg/dL (7-18); CALCIUM 8.1 mg/dL (8.5-10.1); CHLORIDE 108 mmol/L (98-107); CO2 28 mmol/L (21-32); CREATININE 0.4 mg/dL (0.55-1.02); GLUCOSE,RANDOM 88 mg/dL (74-106); MAGNESIUM 1.6 mg/dL (1.8-2.4); POTASSIUM 3.1 mmol/L (3.5-5.1); SODIUM 143 mmol/L (136-145)
[2018-02-24] MEDS ORDERED: POTASSIUM CHLORIDE TABS 20 MEQ TABLET.ER (FP) PO ONE ×3 (15:32→21:15)
[2018-02-24] MEDS ORDERED: MAGNESIUM OXIDE 400 MG TABLET (FP) PO ONE (15:45)
--- NOTE | 2018-02-24 19:56 | PN ---
Progress Note (short form) - Note Progress Note: POD 1 , doing well, ambulating CBC, BMP 02/24/18 08:00 02/24/18 14:15 Last Vital Signs Temp Pulse Resp BP Pulse Ox 98.4 F 62 20 120/68 96 02/24/18 18:00 02/24/18 18:00 02/24/18 18:00 02/24/18 18:00 02/23/18 10:45 abdomen soft, no distension, no cva incision dry, clean no calf tenderness no vaginal bleeding pod 1, afebrile , hypokalemia not corrected with po Kdur, will get medical consultfor revaluation Problem List - Problems (1) with 39 completed weeks gestation Code(s): Z3A.39 - 39 WEEKS GESTATION OF (2) Previous section complicating Code(s): O34.219 - MATERNAL CARE FOR UNSP TYPE SCAR FROM PREVIOUS DEL (3) Admission for sterilization Code(s): Z30.2 - ENCOUNTER FOR STERILIZATION
[2018-02-25] MEDS: SIMETHICONE 80 MG TAB.CHEW (FP) PO PRN ×4 (01:38→18:39)
[2018-02-25] MEDS: oxyCODONE HCL 5 MG TABLET PO PRN ×4 (01:38→18:38)
[2018-02-25] MEDS: ACETAMINOPHEN 325 MG TABLET (FP) PO PRN ×3 (01:38→18:34)
[2018-02-25 07:20] LABS: BASO % 0.2 % (0-2.0); EOS % 0.8 % (0-4.5); HEMATOCRIT 33.8 % (32.4-45.2); HEMOGLOBIN 11.2 GM/dL (10.7-15.3); LYMPH % 18.7 % (8-40); MCH 29.1 pg (25.7-33.7); MCHC 33.1 g/dl (32.0-36.0); MEAN CELL VOLUME 87.9 fl (80-96); MEAN PLT VOLUME 8.2 fl (7.5-11.1); MONO % 5.7 % (3.8-10.2); NEUT % 74.6 % (42.8-82.8); PLATELET COUNT 157 K/MM3 (134-434); RBC 3.85 M/mm3 (3.60-5.2); RDW 15.2 % (11.6-15.6); WHITE BLOOD COUNT 8.5 K/mm3 (4.0-10.0)
[2018-02-25 07:38] LABS: ANION GAP 5 (8-16); BLOOD UREA NITROGEN 6 mg/dL (7-18); CALCIUM 8.1 mg/dL (8.5-10.1); CHLORIDE 109 mmol/L (98-107); CO2 27 mmol/L (21-32); CREATININE 0.4 mg/dL (0.55-1.02); GLUCOSE,RANDOM 72 mg/dL (74-106); MAGNESIUM 1.8 mg/dL (1.8-2.4); POTASSIUM 3.6 mmol/L (3.5-5.1); SODIUM 141 mmol/L (136-145)
[2018-02-25] MEDS: IBUPROFEN 600 MG TABLET (FP) PO PRN ×3 (08:07→18:37)
[2018-02-25] MEDS: ENOXAPARIN NA (PORCINE) 40 MG/0.4 ML DISP.SYRIN SQ SCH (10:36)
[2018-02-25] MEDS ORDERED: MAGNESIUM OXIDE 400 MG TABLET (FP) PO ONE (12:15)
--- NOTE | 2018-02-25 15:03 | PN ---
Post Progress Note - Subjective Subjective: 32 yo Para 4 status post repeat , seen and evaluated. She's out of bed to chair. Doing well. Post Day: 2 Type of Delivery: Repeat C/S Vital Signs: Vital Signs Temperature 98.2 F 02/25/18 10:00 Pulse Rate 78 02/25/18 10:00 Respiratory Rate 20 02/25/18 10:00 Blood Pressure 128/79 02/25/18 10:00 O2 Sat by Pulse Oximetry (%) 96 02/23/18 10:45 Breast Exam: Yes: Soft Uterus: Yes: Fundus Firm Incision: Yes: Dressing dry and intact Abdomen/GI: Yes: Abdomen soft, Tolerating PO Lochia: Yes: Rubra Lochia, amount: Small Extremities: Yes: Calves non-tender Perineum: Yes: Intact Activity: Ambulating - Labs Labs: CBC WBC 8.5 K/mm3 (4.0-10.0) 02/25/18 06:30 RBC 3.85 M/mm3 (3.60-5.2) 02/25/18 06:30 Hgb 11.2 GM/dL (10.7-15.3) 02/25/18 06:30 Hct 33.8 % (32.4-45.2) 02/25/18 06:30 MCV 87.9 fl (80-96) 02/25/18 06:30 MCH 29.1 pg (25.7-33.7) 02/25/18 06:30 MCHC 33.1 g/dl (32.0-36.0) 02/25/18 06:30 RDW 15.2 % (11.6-15.6) 02/25/18 06:30 Plt Count 157 K/MM3 (134-434) D 02/25/18 06:30 MPV 8.2 fl (7.5-11.1) 02/25/18 06:30 Absolute Neuts (auto) 6.3 # 02/25/18 06:30 Neutrophils % 74.6 % (42.8-82.8) 02/25/18 06:30 Lymphocytes % 18.7 % (8-40) D 02/25/18 06:30 Monocytes % 5.7 % (3.8-10.2) 02/25/18 06:30 Eosinophils % 0.8 % (0-4.5) 02/25/18 06:30 Basophils % 0.2 % (0-2.0) 02/25/18 06:30 Nucleated RBC % 0 % (0-0) 02/25/18 06:30 Assessment/Plan Status post repeat Stable Ambulation Analgesia as needed Continue routine post op care
[2018-02-25] MEDS ORDERED: POTASSIUM CHLORIDE TABS 20 MEQ TABLET.ER (FP) PO ONE (15:15)
--- NOTE | 2018-02-25 15:32 | PN ---
Teaching Attending Note Name of Resident: Marvel Winn ATTENDING PHYSICIAN STATEMENT I saw and evaluated the patient. I reviewed the resident's note and discussed the case with the resident. I agree with the resident's findings and plan as documented. SUBJECTIVE:asymptomatic. states her nausea has resolved and eating well. denies CP, SOB, fever, chills, N/V/C/D OBJECTIVE: Last Vital Signs Temp Pulse Resp BP Pulse Ox 98.2 F 78 20 128/79 96 02/25/18 10:02/25/18 10:02/25/18 10:00 02/25/18 10:02/23/18 10:45 General NAD ASSESSMENT AND PLAN: 32yo F wtih no PMH here s/p scheduled 02/23 and found to have hypokalemia 1. hypokalemia- liekly due to GI losses and decreased po intake. now improved. will give an additional kcl 40meq po 2. Hypomagnesemia- improved. will give additional Mg 800mg po 3. would repeat labs tomorrow to ensure that electrolytes remain stable. Thank you for this consultative opportunity. please re-consult if needed
--- NOTE | 2018-02-25 15:59 | PN ---
Physical Exam: SUBJECTIVE: Patient seen and examined. No acute events overnight. Pt. endorses walking around without difficulty or complications. Pt. denies palpitations, SOB , weakness, paresthesias or vision changes. OBJECTIVE: Vital Signs Period Temp Pulse Resp BP Sys/Tadeo Pulse Ox Last 24 Hr 98.2 F-98.4 F 62-78 20-20 113-128/68-79 GENERAL: The patient is awake, alert, and fully oriented, lying comfortably with , in no acute distress. EXTREMITIES: warm, well-perfused, no edema, 5/5 muscle strength in all extremities PSYCH: Normal mood, normal affect. SKIN: Warm, dry, normal turgor Laboratory Results - last 24 hr 02/25/18 02/25/18 06:30 06:30 WBC 8.5 RBC 3.85 Hgb 11.2 Hct 33.8 MCV 87.9 MCH 29.1 MCHC 33.1 RDW 15.2 Plt Count 157 D MPV 8.2 Absolute Neuts (auto) 6.3 Neutrophils % 74.6 Lymphocytes % 18.7 D Monocytes % 5.7 Eosinophils % 0.8 Basophils % 0.2 Nucleated RBC % 0 Sodium 141 Potassium 3.6 Chloride 109 H Carbon Dioxide 27 Anion Gap 5 L BUN 6 L Creatinine 0.4 L Creat Clearance w eGFR > 60 Random Glucose 72 L Calcium 8.1 L Phosphorus 3.0 Magnesium 1.8 Active Medications Current Medications Acetaminophen (Tylenol -) 650 mg PO Q4H PRN PRN Reason: PAIN Last Admin: 02/25/18 10:38 Dose: 650 mg Benzocaine (Americaine 20% [place] -) 1 spray TP PRN PRN PRN Reason: Pain - Topical Benzocaine (Americaine Ointment -) 1 applic WA PRN PRN PRN Reason: Pain - Topical Bisacodyl (Dulcolax Suppository -) 10 mg WA PRN PRN PRN Reason: CONSTIPATION Last Admin: 02/25/18 08:15 Dose: 10 mg Diphenhydramine HCl (Benadryl Injection -) 25 mg IVPUSH Q4H PRN PRN Reason: Pruritis Last Admin: 02/24/18 02:34 Dose: 25 mg Diphenhydramine HCl (Benadryl -) 25 mg PO Q8H PRN PRN Reason: FOR ITCHING Enoxaparin Sodium (Lovenox -) 40 mg SQ DAILY [facility] Last Admin: 02/25/18 10:36 Dose: 40 mg Dextrose/Lactated Ringer's (D5-Lr -) 1,000 mls @ 125 mls/hr IV ASDIR KRISTEN Last Admin: 02/23/18 19:56 Dose: Not Given Ibuprofen (Motrin -) 600 mg PO Q4H PRN PRN Reason: PAIN LEVEL 1 - 3 Last Admin: 02/25/18 14:09 Dose: 600 mg Ibuprofen (Caldolor Injection -) 800 mg IVPB Q6H PRN PRN Reason: PAIN > 5 if PO not effective. Last Admin: 02/24/18 02:15 Dose: 800 mg Methylergonovine Maleate (Methergine Injection -) 0.2 mg IM Q4H PRN PRN Reason: EXCESSIVE BLEEDING Ondansetron HCl (Zofran Injection) 4 mg IVPUSH Q4H PRN PRN Reason: NAUSEA Oxycodone HCl (Roxicodone -) 5 mg PO Q4H PRN PRN Reason: PAIN LEVEL 4 - 6 Last Admin: 02/25/18 08:06 Dose: 5 mg Oxycodone HCl (Roxicodone -) 10 mg PO Q4H PRN PRN Reason: PAIN LEVEL 7 - 10 Last Admin: 02/25/18 14:10 Dose: 10 mg Senna/Docusate Sodium (Pericolace -) 2 tablet PO HS PRN PRN Reason: CONSTIPATION Simethicone (Mylicon -) 80 mg PO Q4H PRN PRN Reason: GAS Last Admin: 02/25/18 14:09 Dose: 80 mg Witch Vanessa/Glycerin (Tucks Pads -) 1 pad TP PRN PRN PRN Reason: Pain - Topical EKG(02/24/18): Flattened T-wave ASSESSMENT/PLAN: 32 y.o. F with no significant PMHx, presents with hypokalemia. Pt. is POD 1 from and BTL. Pt. has had two prior C-sections. #Hypokalemia 2/2 vomiting 2-3 times per day for 6 months w/ decreased PO intake -K+ was 2.9 on 02/23/18. -Pt. was given 80 meq of potassium on 02/23/18 evening and 40meq of potassium in morning of 02/24/18 -Repeat K+ on 02/24/18 showed K+ was still 2.9. -f/u on Magnesium level was 1.6, repleted with 800mg PO Mag Ox -f/u on K+ was 3.1, K Dur orders were placed (02/24/18) -EKG shows flattened T-wave however Pt. denies any symptoms. -Magnesium was 1.6 (02/24/18) -K+ was 3.6 (02/25/18) -Given 40 meq of K+ scheduled to be given 3 hours after Mag. Ox. (02/25/18) -f/u K+ with morning labs on 02/26/18 #Hypomagnesmia - Mg was 1.6(02/24/18) - Given 1st dose of Magnesium Oxide 800mg PO (02/24/18) - Magnesium is 1.8 (02/25/18) - Given 2nd dose of Magnesium Oxide 800mg PO 02/25/18) - f/u Magnesium with morning labs on 02/26/18 #Dispo -maternity dudley Internal Medicine consult signing off. Thank you for consulting with us. Please re-consult if needed. Visit type - Emergency Visit Emergency Visit: No - New Patient This patient is new to me today: No - Critical Care Critical Care patient: No - Discharge Referral Referred to [facility] No
[2018-02-25] MEDS ORDERED: SENNOSIDES/DOCUSATE COMBO (SENNA PLUS) TABLET (UD) PO PRN (22:00)
[2018-02-26] MEDS: SIMETHICONE 80 MG TAB.CHEW (FP) PO PRN ×2 (01:34→19:21)
[2018-02-26] MEDS: ACETAMINOPHEN 325 MG TABLET (FP) PO PRN ×3 (01:34→19:21)
[2018-02-26] MEDS: oxyCODONE HCL 5 MG TABLET PO PRN (01:35)
[2018-02-26] MEDS: IBUPROFEN 600 MG TABLET (FP) PO PRN ×3 (01:35→19:21)
[2018-02-26 07:44] LABS: BASO % 0.5 % (0-2.0); EOS % 1.6 % (0-4.5); HEMATOCRIT 31.4 % (32.4-45.2); HEMOGLOBIN 10.4 GM/dL (10.7-15.3); LYMPH % 24.9 % (8-40); MCH 29.2 pg (25.7-33.7); MEAN CELL VOLUME 88.4 fl (80-96); MEAN PLT VOLUME 8.2 fl (7.5-11.1); MONO % 6.4 % (3.8-10.2); NEUT % 66.6 % (42.8-82.8); PLATELET COUNT 157 K/MM3 (134-434); RBC 3.55 M/mm3 (3.60-5.2); RDW 15.3 % (11.6-15.6); WHITE BLOOD COUNT 6.3 K/mm3 (4.0-10.0)
--- NOTE | 2018-02-26 07:50 | PN ---
Progress Note (short form) - Note Progress Note: pod 3 doing well, no c/o Last Vital Signs Temp Pulse Resp BP Pulse Ox 98.0 F 76 20 120/80 96 02/25/18 21:37 02/25/18 21:37 02/25/18 21:37 02/25/18 21:37 02/23/18 10:45 abdomen soft, no distension , no cva incision dry, clean no calf tenderness plan ambulate, cbc today Problem List - Problems (1) with 39 completed weeks gestation Code(s): Z3A.39 - 39 WEEKS GESTATION OF (2) Previous section complicating Code(s): O34.219 - MATERNAL CARE FOR UNSP TYPE SCAR FROM PREVIOUS DEL (3) Admission for sterilization Code(s): Z30.2 - ENCOUNTER FOR STERILIZATION
[2018-02-26 08:12] LABS: ANION GAP 9 (8-16); BLOOD UREA NITROGEN 8 mg/dL (7-18); CALCIUM 7.7 mg/dL (8.5-10.1); CHLORIDE 108 mmol/L (98-107); CO2 26 mmol/L (21-32); CREATININE 0.4 mg/dL (0.55-1.02); GLUCOSE,RANDOM 62 mg/dL (74-106); MAGNESIUM 1.9 mg/dL (1.8-2.4); POTASSIUM 3.3 mmol/L (3.5-5.1); SODIUM 143 mmol/L (136-145)
[2018-02-26] MEDS ORDERED: POTASSIUM CHLORIDE ORAL LIQUID 20 MEQ/15 ML PO ONE (09:15)
[2018-02-26] MEDS ORDERED: MAGNESIUM OXIDE 400 MG TABLET (FP) PO ONE (09:15)
[2018-02-26] MEDS: ENOXAPARIN NA (PORCINE) 40 MG/0.4 ML DISP.SYRIN SQ SCH (09:33)
[2018-02-27] MEDS: ACETAMINOPHEN 325 MG TABLET (FP) PO PRN (01:38)
[2018-02-27] MEDS: IBUPROFEN 600 MG TABLET (FP) PO PRN (01:38)
[2018-02-27] MEDS: SIMETHICONE 80 MG TAB.CHEW (FP) PO PRN (01:38)
--- NOTE | 2018-02-27 08:06 | DS ---
Physical Exam-DENTAL SPECIALIST Vital Signs: Vital Signs Temperature 98.2 F 02/26/18 19:23 Pulse Rate 54 L 02/26/18 19:23 Respiratory Rate 20 02/26/18 19:23 Blood Pressure 121/68 02/26/18 19:23 O2 Sat by Pulse Oximetry (%) 96 02/23/18 10:45 Constitutional: Yes: Well Nourished, No Distress, Calm Eyes: Yes: WNL, Conjunctiva Clear, EOM Intact HENT: Yes: WNL, Atraumatic, Normocephalic Neck: Yes: WNL, Supple, Trachea Midline Cardiovascular: Yes: WNL, Regular Rate and Rhythm Respiratory: Yes: WNL, Regular, CTA Bilaterally Gastrointestinal: Yes: WNL ...Rectal Exam: Yes: WNL Renal/: Yes: WNL External Genitalia: Yes: Normal ....Post : Yes: Uterus firm, Uterus non-tender, Slight lochia rubra Breast(s): Yes: WNL Musculoskeletal: Yes: WNL Extremities: Yes: WNL Integumentary: Yes: WNL Wound/Incision: Yes: Clean/Dry, Well Approximated, Sutures Intact Neurological: Yes: WNL, Alert, Oriented ...Motor Strength: WNL Psychiatric: Yes: WNL, Alert, Oriented Labs: CBC, BMP 02/26/18 06:30 02/26/18 06:30 Delivery - Delivery Section: Repeat, Low Flap Transverse (no complication) Type of Anesthesia: Spinal Episiotomy/Laceration: None EBL (cc): 500 Delivery, Single - Stages of Labor Date of Delivery: 02/23/18 Time of Delivery: 08:31 Time Placenta Delivered: 08:32 Placenta: Yes: Expressed - Condition of Business Manager/Skills Auditor Present: Yes Name: Naveen Lucas Infant Gender: Male Weight: 7 lb 5 oz Position: Right, OT Total Hours ROM (Hrs/Mins): 0/2 - 1 Minute Total Score: 9 5 Minutes Total Score: 9 - [place] Feeding Plan Initial Plan: Elected not to breastfeed exclusively throughout hospitalization Discharge Summary Reason For Visit: SCHEDULED C/SECTION Current Active Problems Admission for sterilization (Acute) with 39 completed weeks gestation (Acute) Previous section complicating (Acute) Procedures: Principal: repeat LST c/s Other Procedures: BTL Hospital Course: no complication Condition: Good - Instructions Diet, Activity, Other Instructions: regular diet, follow up [facility] care 1 week, if fever ,pain, heavy vaginal bleeding call MD Disposition: HOME - Home Medications Comprehensive Discharge Medication List: Ambulatory Orders Ferrous Sulfate [Feosol] 325 mg PO DAILY 02/23/18 Vit/Iron Fum/Folic AC [ Tablet] 1 each PO DAILY 02/23/18 Ibuprofen [Motrin -] 600 mg PO QID #28 tablet 02/26/18
[2018-02-27 08:11] VITALS: BP 126/68; PULSE 52; TEMP 98.7
[2018-02-27] MEDS: ENOXAPARIN NA (PORCINE) 40 MG/0.4 ML DISP.SYRIN SQ SCH (09:15)
--- NOTE | 2018-03-02 15:46 | PATH ---
Surgical Pathology Report Patient Name: GIOVANNI MERA [facility]. Rec. #: [id number] /Age/Gender: 1985 (Age: 32) / F Account: [id number] Location: [facility] OBS/[employer]'S MASTER Taken: 02/23/2018 Received: 02/24/2018 Reported: 03/02/2018 Physicians: Gilberto Whittaker M.D. Specimen(s) Received A: PLACENTA B: PORTION OF LEFT FALLOPIAN TUBE C: PORTION OF RIGHT FALLOPIAN TUBE Clinical History , 02/2006 Final Diagnosis A. PLACENTA, SECTION: 541 G THIRD TRIMESTER PLACENTA WITH TRIVASCULAR UMBILICAL CORD AND UNREMARKABLE PLACENTAL MEMBRANES. B. FALLOPIAN TUBE, LEFT, PARTIAL EXCISION: FULL LUMINAL PORTION OF UNREMARKABLE FALLOPIAN TUBE. C. FALLOPIAN TUBE, RIGHT, PARTIAL EXCISION: FULL LUMINAL PORTION OF UNREMARKABLE FALLOPIAN TUBE. Electronically Signed Brigitte Mosquera M.D. Gross Description A. The specimen is received fresh labeled placenta and is a 541 gram, 16.5 x 15.5 x 2.4 cm. placenta with attached membranes and umbilical cord. The attached membranes are [place], translucent with focal opacities and insert marginally. The umbilical cord measures 43 cm. in length and averages 1.2 cm. in diameter. The cord inserts eccentrically, 5 cm. to the nearest margin. No true knots or strictures are identified. Cut surface of the umbilical cord reveals 3 vessels. The surface is frye blue with moderate fibrin deposition and appropriate caliber vessels. The maternal surface is red-brown with focal defects. Sectioning reveals red-brown, spongy parenchyma. No lesions are identified. Stress Engineer sections are submitted in three cassettes as follows: 1- membrane rolls and umbilical cord; 2-3- full thickness sections of placenta. B. Received fresh labeled "left fallopian tube," is a 0.6 cm in length portion of fallopian tube. No fimbriae are present. The outer surface is [place] and smooth. Sectioning reveals an unremarkable lumen. The specimen is bisected and entirely submitted in one cassette. C. Received in formalin labeled "right fallopian tube," is a 1.7 cm in length portion of fallopian tube. No fimbriae are present. The outer surface is [place]-pete and smooth. Sectioning reveals an unremarkable lumen. Stress Engineer sections are submitted in one cassette. 03/01/2018
== END 2018-02-27 11:40 | disposition home or self-care (01) | DRG 540 ==
LOC: JLDR 06:16 → J3W 11:30
PROVIDERS: ADMIT Obstetrics & Gynecology; ATTEND Obstetrics & Gynecology
PROC: 10D00Z1 Extraction of Products of Conception, Low, Open Approach (ICD-10-PCS; principal; 2018-02-23)
PROC: 0UB70ZZ Excision of Bilateral Fallopian Tubes, Open Approach (ICD-10-PCS; 2018-02-23)
DX: O34.211 Maternal care for low transverse scar from previous cesarean delivery (principal); N85.8 Other specified noninflammatory disorders of uterus; Z3A.39 39 weeks gestation of pregnancy; Z37.0 Single live birth; Z30.2 Encounter for sterilization; O26.893 Other specified pregnancy related conditions, third trimester; E87.6 Hypokalemia; E83.42 Hypomagnesemia
CPT/HCPCS: 36415; 80048; 83735; 84100; 85025; 90715; 93005; 93010

== ENCOUNTER 2022-10-04 08:31 | Emergency (ER) | payer OTHER ==
[2022-10-04 08:53] VITALS: BMI 33.3
[2022-10-04 11:00] LABS: BASO % 0.3 % (0-2.0); EOS % 0.2 % (0-4.5); HEMATOCRIT 39.3 % (32.4-45.2); HEMOGLOBIN 13.1 GM/dL (10.7-15.3); LYMPH % 14.2 % (8-40); MCH 28.4 pg (25.7-33.7); MCHC 33.4 g/dl (32.0-36.0); MEAN CELL VOLUME 84.9 fl (80-96); MEAN PLT VOLUME 7.5 fl (7.5-11.1); MONO % 4.9 % (3.8-10.2); NEUT % 80.4 % (42.8-82.8); PLATELET COUNT 248 10^3/uL (134-434); RBC 4.63 M/mm3 (3.60-5.2); WHITE BLOOD COUNT 8.7 K/mm3 (4.0-10.0)
[2022-10-04 11:11] LABS: URINE APPEARANCE CLEAR; URINE BILIRUBIN NEGATIVE (NEGATIVE); URINE COLOR YELLOW; URINE GLUCOSE (UA) NEGATIVE (NEGATIVE); URINE KETONE NEGATIVE (NEGATIVE); URINE LEUK ESTERASE NEGATIVE (NEGATIVE); URINE NITRITE NEGATIVE (NEGATIVE); URINE PROTEIN NEGATIVE (NEGATIVE); URINE UROBILINOGEN 0.2 mg/dL (0.2-1.0)
[2022-10-04 11:20] LABS: CALCIUM 8.8 mg/dL (8.5-10.1)
[2022-10-04 11:21] LABS: ALBUMIN 3.8 g/dl (3.4-5.0); BLOOD UREA NITROGEN 14.9 mg/dL (7-18)
[2022-10-04 11:24] LABS: CREATININE 0.8 mg/dL (0.55-1.3)
[2022-10-04 11:26] LABS: BILIRUBIN,TOTAL 0.3 mg/dL (0.2-1); TOT PROT 7.6 g/dl (6.4-8.2)
[2022-10-04] MEDS ORDERED: FAMOTIDINE 20 MG/50 ML IVPB 20 MG/50 ML MG IVPB ONE ×2 (12:01→12:10)
[2022-10-04] MEDS ORDERED: ACETAMINOPHEN 325 MG TABLET (FP) PO ONE (12:01)
[2022-10-04] MEDS ORDERED: MAG HYDROX/AL HYDROX/SIMETH 30 ML UNIT-DOSE CUP PO ONE (12:01)
[2022-10-04] MEDS ORDERED: ACETAMINOPHEN 325 MG TABLET (FP) ONE (12:10)
[2022-10-04] MEDS ORDERED: MAG HYDROX/AL HYDROX/SIMETH 30 ML UNIT-DOSE CUP ONE (12:10)
[2022-10-04 13:21] VITALS: BP 110/77; PULSE 86; RESP 19; TEMP 97.9
== END 2022-10-04 13:18 | disposition home or self-care (01) ==
LOC: JER 08:31
PROC: 3E033GC Introduction of Other Therapeutic Substance into Peripheral Vein, Percutaneous Approach (ICD-10-PCS; principal; 2022-10-04)
DX: R10.84 Generalized abdominal pain (principal)
CPT/HCPCS: 36415; 80053; 81003; 83690; 84703; 85025; 87086; 99284-25

== ENCOUNTER 2022-12-05 13:19 | Emergency (ER) | payer OTHER ==
[2022-12-05 13:25] VITALS: TEMP 98.5; BMI 33.3
[2022-12-05] MEDS ORDERED: ONDANSETRON *ODT* 4 MG TABLET SL ONE (13:55)
[2022-12-05] MEDS ORDERED: ONDANSETRON *ODT* 4 MG TABLET ONE ×2 (14:01→14:33)
[2022-12-05 14:56] VITALS: BP 101/73; PULSE 92; RESP 20
[2022-12-05] MEDS ORDERED: KETOROLAC TROMETHAMINE 60 MG/2 ML VIAL IM ONE (15:21)
[2022-12-05] MEDS ORDERED: KETOROLAC TROMETHAMINE 60 MG/2 ML VIAL ONE (15:30)
[2022-12-05] MEDS ORDERED: KETOROLAC TROMETHAMINE 30 MG/1 ML VIAL ONE (15:36)
== END 2022-12-05 16:34 | disposition home or self-care (01) ==
LOC: JER 13:19
PROC: 3E0233Z Introduction of Anti-inflammatory into Muscle, Percutaneous Approach (ICD-10-PCS; principal; 2022-12-05)
DX: R11.10 Vomiting, unspecified (principal); R51.9 Headache, unspecified; R05.1 Acute cough; J02.9 Acute pharyngitis, unspecified; Z20.822 Contact with and (suspected) exposure to COVID-19
CPT/HCPCS: 0241U-QW; 84703; 99284-25; Q0162

== ENCOUNTER 2024-05-04 16:55 | Emergency (ER) | payer OTHER ==
[2024-05-04 17:09] VITALS: TEMP 98.8; BMI 29.0
[2024-05-04] MEDS ORDERED: ACETAMINOPHEN INJECTION 100 ML ONE (18:17)
[2024-05-04] MEDS: SODIUM CHLORIDE 0.9% 500 ML INFUS.BAG IV ONE (18:22)
[2024-05-04] MEDS: ACETAMINOPHEN 1000 MG/100 ML BAG IVPB ONE (18:22)
[2024-05-04 18:24] LABS: URINE APPEARANCE CLEAR; URINE BILIRUBIN NEGATIVE (NEGATIVE); URINE COLOR YELLOW; URINE GLUCOSE (UA) NEGATIVE (NEGATIVE); URINE KETONE NEGATIVE (NEGATIVE); URINE LEUK ESTERASE NEGATIVE (NEGATIVE); URINE NITRITE NEGATIVE (NEGATIVE); URINE PROTEIN NEGATIVE (NEGATIVE); URINE UROBILINOGEN 0.2 mg/dL (0.2-1.0)
[2024-05-04 18:27] LABS: HCG,QUALITATIVE URINE Negative
[2024-05-04 18:37] LABS: BASO % 0.6 % (0-2.0); EOS % 0.8 % (0-4.5); HEMATOCRIT 35.7 % (32.4-45.2); HEMOGLOBIN 11.7 GM/dL (10.7-15.3); LYMPH % 33.1 % (8-40); MCH 28.3 pg (25.7-33.7); MCHC 32.7 g/dl (32.0-36.0); MEAN CELL VOLUME 86.6 fl (80-96); MEAN PLT VOLUME 7.8 fl (7.5-11.1); MONO % 4.6 % (3.8-10.2); NEUT % 60.9 % (42.8-82.8); PLATELET COUNT 258 10^3/uL (134-434); RBC 4.12 M/mm3 (3.60-5.2); RDW 14.6 % (11.6-15.6); WHITE BLOOD COUNT 7.9 K/mm3 (4.0-10.0)
[2024-05-04 18:41] LABS: POTASSIUM 3.6 mmol/L (3.5-5.1)
[2024-05-04 18:43] LABS: CALCIUM 8.9 mg/dL (8.5-10.1)
[2024-05-04 18:44] LABS: ALBUMIN 3.5 g/dl (3.4-5.0); BLOOD UREA NITROGEN 12.7 mg/dL (7-18)
[2024-05-04] MEDS ORDERED: KETOROLAC TROMETHAMINE 30 MG/1 ML VIAL ONE (18:45)
[2024-05-04 18:47] LABS: CREATININE 0.7 mg/dL (0.55-1.3)
[2024-05-04 18:48] LABS: BILIRUBIN,TOTAL 0.3 mg/dL (0.2-1)
[2024-05-04] MEDS: KETOROLAC TROMETHAMINE 30 MG/1 ML VIAL IVPUSH ONE (18:59)
[2024-05-04 19:43] LABS: HIV INTERPRETATION NEGATIVE (NEGATIVE)
[2024-05-04 22:10] VITALS: BP 96/66; PULSE 68; RESP 15
== END 2024-05-04 22:11 | disposition home or self-care (01) ==
LOC: JER 16:55
PROC: 3E033NZ Introduction of Analgesics, Hypnotics, Sedatives into Peripheral Vein, Percutaneous Approach (ICD-10-PCS; principal; 2024-05-04)
PROC: 3E0333Z Introduction of Anti-inflammatory into Peripheral Vein, Percutaneous Approach (ICD-10-PCS; 2024-05-04)
DX: R10.31 Right lower quadrant pain (principal); N83.201 Unspecified ovarian cyst, right side
CPT/HCPCS: 36415; 74177-TC; 80053; 81003; 83690; 84703; 85025; 86803; 87086; 87389; 99285-25; J0131; Q9967